=== PATIENT | female | born 1995 | race Caucasian/White ===

== ENCOUNTER 2021-05-16 09:47 | Emergency (ER) | payer BC, OTHER ==
[~2021-05-16] VITALS: Wt 77.1 kg
[~2021-05-16 09:47] MED LIST: CIPRODEX 0.3%-7.5 M1 OT; NKHM
== END 2021-05-16 10:30 | disposition home or self-care (01) ==
LOC: ED 09:47
DX: U07.1 COVID-19 (principal); B34.9 Viral infection, unspecified